=== PATIENT | female | born 1950 | race Caucasian/White ===

== ENCOUNTER 2017-09-15 20:47 | Emergency (ER) | payer OTHER ==
[2017-09-15 20:52] VITALS: RESP 20; O2SAT 95
--- NOTE | 2017-09-15 21:10 | EDPHY ---
H & P Smoking Status: Former smoker Time Seen by Provider: 09/15/17 20:57 HPI/ROS: CHIEF COMPLAINT: Right arm injury HISTORY OF PRESENT ILLNESS: 66-year-old female presents to the emergency department with injury to right arm. The patient was at work yesterday and slipped on some ice and fell injuring her right shoulder and right elbow. The patient did not hit her head or lose consciousness. Denies chest pain or difficulty breathing. No abdominal pain. No neck or back pain. Denies paresthesias in upper or lower extremities. REVIEW OF SYSTEMS: Constitutional: No fever, no chills. Eyes: No double or blurry vision. ENT: No sore throat. Respiratory: No cough, no shortness of breath. Cardiac: No chest pain. Gastrointestinal: No abdominal pain, vomiting or diarrhea. Genitourinary: No dysuria. Musculoskeletal: No neck or back pain. Skin: No rashes. Neurological: No headache. (Dilia Lundy) Past Medical/Surgical History: right total hip replacement (Dilia Lundy) Social History: Single and lives in [place] (Dilia Lundy) Physical Exam: General Appearance: Alert, no distress. No visible signs of trauma to her head. Mentating normally and answering questions appropriately. Eyes: Pupils equal and round. Extraocular motions are all intact. ENT: Mouth: Mucous membranes moist. Respiratory: No wheezing, rhonchi, or rales, lungs are clear to auscultation. Cardiovascular: Regular rate and rhythm. Gastrointestinal: Abdomen is soft and nontender, no masses, no rebound or guarding, bowel sounds normal. Neurological: Alert and oriented x 3, cranial nerves II through XII grossly intact Skin: Warm and dry, no rashes. Musculoskeletal: Nontender to palpate along the cervical, thoracic or lumbar spine. Neck is supple. Extremities: Limited extension of the right elbow. Mild diffuse tenderness with palpation in the right shoulder. Full range of motion of the right wrist and right hand. Mild tenderness with palpation in the right elbow. Strong radial pulse at the right wrist. Normal sensation to light touch with normal 2 point discrimination. Normal gait. Psychiatric: Patient is oriented X 3, there is no agitation. (Dilia Lundy) Constitutional: Initial Vital Signs Heart Rate 66 09/15/17 20:50 Respiratory Rate 20 09/15/17 20:50 Blood Pressure 128/66 H 09/15/17 20:50 O2 Sat (%) 95 09/15/17 20:50 O2 Delivery Mode Room Air Allergies/Adverse Reactions: No Known Allergies Allergy (Unverified 09/15/17 20:49) Home Medications: Medication Instructions Recorded Atorvastatin Calcium [Lipitor 10 10 mg PO HS 03/31/13 mg (RX)] Calcium Carb W/Vit D [Calcium Carb 500 mg PO HS 03/31/13 W/Vit D 500/200 (OTC)] Carboxymethylcellulose 1% [Refresh 1 drop EACHEYE PRN PRN 03/31/13 Celluvisc] Eye Lubricant Combination No.1 1 drop OP TID 03/31/13 [Freshkote] Herbals/Supplements -Info Only 1 each PO AD 03/31/13 Ibuprofen [Motrin 200 mg (OTC)] 200 - 400 mg PO DAILY PRN 03/31/13 Multivitamins [Tab-A-Guadalupe] 1 each PO DAILY 03/31/13 [place]-3 Fatty Acids [Fish Oil 1000 1,000 mg PO BID 03/31/13 mg (OTC)] Pharmacy Completed 03/31/13 03/31/13 Vits A,C,E/Lutein/Minerals 1 each PO DAILY 03/31/13 [Ocuvite Tablet] Md Reconcilled 04/17/13 Medical Decision Making - Diagnostics Imaging: I viewed and interpreted images myself Procedures: Patient was placed in long arm splint and sling and examined post application in good placement with normal [employer]. (Dilia Lundy) ED Course/Re-evaluation: 66-year-old female presents to the emergency department with right arm injury. X -rays right shoulder and right elbow reveal radial head fracture. She is placed in a long-arm splint and sling and given orthopedic referral. (Dilia Lundy) The patient was evaluated and managed by the physician bilingual legal assistant. I have reviewed this chart and I agree with the findings and plan of care as documented , as indicated by my signature. I am the secondary supervising physician. ( Sepideh Machado) Differential Diagnosis: Including but not limited to fracture, dislocation, contusion, sprain (Dilia Lundy) Departure - Departure Disposition: Home, Routine, Self-Care Clinical Impression: Elbow fracture, right Qualifiers: Encounter type: initial encounter Fracture type: closed Qualified Code(s): S42.401A - Unspecified fracture of lower end of right humerus, initial encounter for closed fracture Condition: Good Instructions: Elbow Fracture (ED) Additional Instructions: Keep splint and sling on until follow up with orthopedic doctor this week. Ibuprofen 600mg every 8 hours for pain as directed. Referrals: Binh Mack MD [Medical Doctor] - 2-3 days without fail (Or 3rd on-call)
[2017-09-15] MEDS ORDERED: IBUPROFEN 600 MG TAB PO ONE (22:03)
[2017-09-15] MEDS ORDERED: KETOROLAC 15 MG/1 ML SDV ONE (22:04)
[2017-09-15 22:51] VITALS: BP 105/91; PULSE 85
== END 2017-09-15 22:50 | disposition home or self-care (01) ==
DX: S42.401A Unspecified fracture of lower end of right humerus, initial encounter for closed fracture (principal); Z87.891 Personal history of nicotine dependence; W00.0XXA Fall on same level due to ice and snow, initial encounter; Y99.0 Civilian activity done for income or pay
CPT/HCPCS: A4565; J1885